=== PATIENT | female | born 1965 | race Caucasian/White ===

== ENCOUNTER 2017-03-07 14:24 | Inpatient (IN) | payer OTHER ==
[~2017-03-07] VITALS: Ht 172.7 cm; Wt 70.8 kg
[2017-03-07 18:23] LABS: HEMOGLOBIN 12.9 gm/dl (12.3-15.3); RED BLOOD COUNT 3.96 M/UL (4.00-5.10); WHITE BLOOD COUNT 7.7 K/UL (4.5-11.0)
[2017-03-07 18:50] LABS: BUN/CREATININE RATIO 28 (0-10)
[2017-03-08] MEDS ORDERED: PROTONIX40 MG PO (16:09)
[2017-03-08] MEDS ORDERED: NORCO 5-325 TA1 EACH PO (16:10)
[2017-03-08] MEDS ORDERED: SINGULAIR10 MG PO (16:11)
[2017-03-08] MEDS ORDERED: CIPRO500 MG PO (16:13)
[2017-03-08] MEDS ORDERED: FLONASE ALLER15.8 ML (16:14)
[2017-03-09 04:44] LABS: HEMOGLOBIN 12.4 gm/dl (12.3-15.3); RED BLOOD COUNT 3.85 M/UL (4.00-5.10); WHITE BLOOD COUNT 6.9 K/UL (4.5-11.0)
[2017-03-09 05:00] LABS: BUN/CREATININE RATIO 32 (0-10)
[2017-03-10 06:52] LABS: HEMOGLOBIN 12.4 gm/dl (12.3-15.3); RED BLOOD COUNT 3.86 M/UL (4.00-5.10); WHITE BLOOD COUNT 6.9 K/UL (4.5-11.0)
[2017-03-10 07:13] LABS: BUN/CREATININE RATIO 28 (0-10)
[2017-03-11 05:34] LABS: HEMOGLOBIN 11.6 gm/dl (12.3-15.3); RED BLOOD COUNT 3.59 M/UL (4.00-5.10); WHITE BLOOD COUNT 7.3 K/UL (4.5-11.0)
[2017-03-11 05:54] LABS: BUN/CREATININE RATIO 30 (0-10)
[2017-03-11] MEDS ORDERED: TOPROL XL 25 MG25 MG PO (17:58)
[2017-03-11] MEDS ORDERED: SENOKOT-S TABL1 EACH PO (17:59)
== END 2017-03-11 18:30 | disposition home or self-care (01) | DRG 286 ==
LOC: ER1 14:24 → M/S 21:02 → ZEROF 21:02 → M/S 03-08 13:37
PROVIDERS: Emergency Medicine; Internal Medicine; Obstetrics & Gynecology Obstetrics; ADMIT Family Medicine
PROC: B246ZZ4 Ultrasonography of Right and Left Heart, Transesophageal (ICD-10-PCS; principal; 2017-03-10)
PROC: B2111ZZ Fluoroscopy of Multiple Coronary Arteries using Low Osmolar Contrast (ICD-10-PCS; 2017-03-11)
PROC: B2151ZZ Fluoroscopy of Left Heart using Low Osmolar Contrast (ICD-10-PCS; 2017-03-11)
PROC: 4A1239Z Monitoring of Cardiac Output, Percutaneous Approach (ICD-10-PCS; 2017-03-11)
PROC: 02HQ32Z Insertion of Monitoring Device into Right Pulmonary Artery, Percutaneous Approach (ICD-10-PCS; 2017-03-11)
PROC: 4A133B3 Monitoring of Arterial Pressure, Pulmonary, Percutaneous Approach (ICD-10-PCS; 2017-03-11)
DX: I49.3 Ventricular premature depolarization (principal); I50.23 Acute on chronic systolic (congestive) heart failure; I47.2 Ventricular tachycardia; R00.8 Other abnormalities of heart beat; I42.0 Dilated cardiomyopathy; J44.9 Chronic obstructive pulmonary disease, unspecified; I95.9 Hypotension, unspecified; J06.9 Acute upper respiratory infection, unspecified; I25.10 Atherosclerotic heart disease of native coronary artery without angina pectoris; I34.1 Nonrheumatic mitral (valve) prolapse; I34.0 Nonrheumatic mitral (valve) insufficiency; F17.210 Nicotine dependence, cigarettes, uncomplicated; E66.3 Overweight; K21.9 Gastro-esophageal reflux disease without esophagitis; F41.9 Anxiety disorder, unspecified; Z72.3 Lack of physical exercise; M41.9 Scoliosis, unspecified; M54.9 Dorsalgia, unspecified; N81.10 Cystocele, unspecified; Z83.3 Family history of diabetes mellitus; Z82.49 Family history of ischemic heart disease and other diseases of the circulatory system; Z84.89 Family history of other specified conditions; Z88.1 Allergy status to other antibiotic agents; Z91.030 Bee allergy status; Z79.891 Long term (current) use of opiate analgesic; Z79.899 Other long term (current) drug therapy; Z68.23 Body mass index [BMI] 23.0-23.9, adult
CPT/HCPCS: ECHO; 36415; 71010; 78452; 78472; 80048; 80053; 80061; 82550; 82553; 82810; 83735; 83874; 83880; 84439; 84443; 84484; 85025; 85027; 93005; 93017; 93306; 93312; 93320; 94640; 99285; A9502; A9560; C1751; C1769; G0378; J1644; J2250; J2270; J2405; J2550; J2785; J3010; J7040; J7050; Q9963

== ENCOUNTER → 2021-03-20 | Outpatient (CLI) | payer MEDICARE, OTHER ==
[~2021-03-20] MED LIST: ALBUTEROL1.25 MG/3 INH; ALDACTONE25 MG PO; CEFUROXIME500 MG PO; CIPRO500 MG PO; COMBIVENT0.074 GM/I INH; ECOTRIN81 MG PO; FLONASE ALLER15.8 ML; HABITROL 21 MG P1 EA TOP; KLONOPIN0.5 MG PO; LASIX40 MG PO; LOPRESSOR50 MG PO; MEDROL4 MG PO; NORCO 5-325 TA1 EACH PO; PROTONIX40 MG PO; SENOKOT-S TABL1 EACH PO; SINGULAIR10 MG PO; TOPROL XL 25 MG25 MG PO
== END ==
LOC: KOH-I 15:58
DX: M51.27 Other intervertebral disc displacement, lumbosacral region (principal)
CPT/HCPCS: 72131

== ENCOUNTER → 2021-06-21 | Outpatient (CLI) | payer MEDICARE, OTHER | LOC: HEART 5 10:29 | DX: J44.9 Chronic obstructive pulmonary disease, unspecified (principal); R06.02 Shortness of breath | CPT/HCPCS: 71046; 94060; 94729 ==

== ENCOUNTER → 2021-09-28 | Outpatient (CLI) | payer MEDICARE, OTHER | LOC: KOH-I 10:48 | DX: J40 Bronchitis, not specified as acute or chronic (principal) | CPT/HCPCS: 71046 ==

== ENCOUNTER → 2022-01-01 | Outpatient (CLI) | payer MEDICARE, OTHER | LOC: HEART 5 11-29 11:00 | DX: I50.22 Chronic systolic (congestive) heart failure (principal); I42.0 Dilated cardiomyopathy; I08.3 Combined rheumatic disorders of mitral, aortic and tricuspid valves | CPT/HCPCS: 93306 ==

== ENCOUNTER → 2022-02-07 | Outpatient (CLI) | payer MEDICARE, OTHER | LOC: KOH-I 10:10 | DX: R74.8 Abnormal levels of other serum enzymes (principal); Z90.49 Acquired absence of other specified parts of digestive tract | CPT/HCPCS: 76705 ==

== ENCOUNTER 2022-05-02 17:07 | Emergency (ER) | payer MEDICARE, OTHER ==
[2022-05-02 17:43] LABS: HEMOGLOBIN 12.9 gm/dl (12.3-15.3); RED BLOOD COUNT 4.07 M/UL (4.00-5.10); WHITE BLOOD COUNT 8.2 K/UL (4.5-11.0)
[2022-05-02 18:38] LABS: BUN/CREATININE RATIO 25 (0-10)
[2022-05-03] MEDS ORDERED: NORFLEX 100 MG100 MG PO (01:22)
[2022-05-03] MEDS ORDERED: IBUPROFEN600 MG PO (01:22)
== END 2022-05-03 01:45 | disposition home or self-care (01) ==
LOC: ER1 17:07
PROVIDERS: Preventive Medicine Occupational Medicine
DX: R09.1 Pleurisy (principal); R06.02 Shortness of breath; R07.81 Pleurodynia; J44.9 Chronic obstructive pulmonary disease, unspecified; F17.210 Nicotine dependence, cigarettes, uncomplicated; Z88.1 Allergy status to other antibiotic agents; Z20.822 Contact with and (suspected) exposure to COVID-19; X50.9XXA Other and unspecified overexertion or strenuous movements or postures, initial encounter
CPT/HCPCS: 0240U; 71046; 80053; 82550; 82553; 84484; 85025; 85379; 93005; 94664; 96374; 99285; J1100; Q9967